=== PATIENT | female | born 1975 | race Two or more races ===

== ENCOUNTER 2023-12-07 09:17 | Emergency (ER) | payer OTHER ==
[~2023-12-07] VITALS: Ht 154.9 cm; Wt 61.2 kg
[2023-12-07 09:34] VITALS: BP 125/78; TEMP 97.6; O2SAT 99
[2023-12-07] MEDS ORDERED: DIPH25CA83 PO (11:06)
[2023-12-07] MEDS ORDERED: CLIN300C12 PO (11:06)
[2023-12-07] MEDS ORDERED: PRED20TA PO (11:06)
== END 2023-12-07 11:10 | disposition home or self-care (01) ==
LOC: ER 09:21
DX: H00.034 Abscess of left upper eyelid (principal)

== ENCOUNTER 2025-01-30 08:04 | Emergency (ER) | payer OTHER ==
[~2025-01-30] VITALS: Ht 144.8 cm; Wt 77.1 kg
[~2025-01-30 08:04] MED LIST: CLIN300C12 PO; DIPH25CA83 PO; PRED20TA PO
[2025-01-30 08:05] VITALS: BP 134/96; TEMP 98.1; O2SAT 97
[2025-01-30] MEDS ORDERED: IBUP-1955 PO (08:22)
[2025-01-30] MEDS ORDERED: VALA10002 PO (08:22)
[2025-01-30] MEDS ORDERED: LIDO30AD10 TP (08:22)
[2025-01-30] MEDS ORDERED: KETOROLAC TROMETHAMINE 15 MG/ML VIAL ONE (08:31)
[2025-01-30] MEDS ORDERED: LIDOCAINE 5% (PATCH) 1 EA PATCH TP ONE (08:31)
[2025-01-30] MEDS: KETOROLAC TROMETHAMINE 15 MG/ML VIAL IM ONE (08:40)
[2025-01-30] MEDS: LIDOCAINE 5% (PATCH) 1 EA PATCH TP STA (08:40)
== END 2025-01-30 08:41 | disposition home or self-care (01) ==
LOC: ER 08:15
DX: B02.9 Zoster without complications (principal); M54.50 Low back pain, unspecified; Z79.52 Long term (current) use of systemic steroids; Z79.624 Long term (current) use of inhibitors of nucleotide synthesis; Z60.2 Problems related to living alone
CPT/HCPCS: 99283; 96372; J1885